=== PATIENT | male | born 1950 | race Caucasian/White ===

== ENCOUNTER 2018-09-16 04:16 | Emergency (ER) | payer MEDICARE, OTHER ==
[2018-09-16] MEDS ORDERED: HYDROmorphone INJ* 0.5 MG/0.5 ML SYRINGE IV SLOW PU ONE (04:56)
[2018-09-16] MEDS ORDERED: Ondansetron INJ* 2 MG/ML VIAL IV ONE (04:57)
[2018-09-16 05:15] LABS: ABS Basophils 0.1 10^3/ul (0-0.2); ABS Eosinophils 0.1 10^3/ul (0-0.6); ABS Lymphocytes 0.8 10^3/ul (1.0-4.8); ABS Monocytes 0.4 10^3/ul (0-0.8); ABS Neutrophils 3.7 10^3/ul (1.5-7.7); Eosinophil % 2.2 %; Hematocrit 29 % (42-52); Hemoglobin 9.6 g/dL (14.0-18.0); Lymphocyte % 16.7 %; Mean Corpuscular HGB Conc 33 g/dL (31-36); Mean Corpuscular Hemoglobin 23 pg (27-31); Mean Corpuscular Volume 70 fL (80-94); Mean Platelet Volume 7.8 fL (7.4-10.4); Platelet Count 177 10^3/uL (150-450); Red Blood Count 4.16 10^6 /uL (4.18-5.48); Red Cell Distribution Width 18 % (10-15)
[2018-09-16 05:27] LABS: Activated Partial Thrombo Time 31.1 seconds (26.0-38.0); INR 1.14 (0.82-1.09)
[2018-09-16 05:31] LABS: ALT 20 U/L (7-52); AST 24 U/L (13-39); Albumin 4.1 g/dL (3.2-5.2); Albumin/Globulin Ratio 1.6 (1-3); Alkaline Phosphatase 71 U/L (34-104); Anion Gap 6 mmol/L (2-11); BUN/Creatinine Ratio 23.2 (8-20); Blood Urea Nitrogen 19 mg/dL (6-24); C Reactive Protein < 1.00 mg/L (<8.01); CO2 Carbon Dioxide 25 mmol/L (22-32); Calcium 9.3 mg/dL (8.6-10.3); Chloride 106 mmol/L (101-111); EGFR African American 112.7 (>60); EGFR Non-African American 93.2 (>60); Globulin 2.5 g/dL (2-4); Glucose 129 mg/dL (70-100); Potassium 4.1 mmol/L (3.5-5.0); Sodium 137 mmol/L (135-145); Total Protein 6.6 g/dL (6.4-8.9)
[2018-09-16] MEDS ORDERED: fentaNYL* 50 MCG/ML 2 ML VIAL (100 MCG VIAL) IV SLOW PU ONE (05:44)
[2018-09-16 06:17] LABS: Erythrocyte Sed Rate 29 mm/Hr (0-19)
--- NOTE | 2018-09-16 07:15 | ED ---
Progress - Progress Note Progress Note: This patient was signed out from Dr. Renee to Dr. Quezada at 0700 on 09/16/18, pending disposition, awaiting CT pelvis. Pelvis CT reveals, IMPRESSION: MODERATE TO SEVERE OSTEOARTHRITIC CHANGE IN THE LEFT HIP AND MODERATE OSTEOARTHRITIC CHANGE IN THE RIGHT HIP. The patients condition is stable and will be discharged to home with Dx of hip pain and sacroiliac pain. - Results/Orders Results/Orders: Pelvis CT reveals, per radiologist, IMPRESSION: MODERATE TO SEVERE OSTEOARTHRITIC CHANGE IN THE LEFT HIP AND MODERATE OSTEOARTHRITIC CHANGE IN THE RIGHT HIP. ED physician has reviewed this radiology report. Re-Evaluation - Re-Evaluation First Eval Re-Evaluation Time: 07:28 Comment: Discussed results and plan of care with pt. Pt is agreeable with discharge. Second Eval Re-Evaluation Time: 08:35 Comment: Pt can walk. Course/Dx - Course Course Of Treatment: This patient was signed out from Dr. Renee to Dr. Quezada , pending disposition, awaiting CT pelvis. Pelvis CT reveals, IMPRESSION: MODERATE TO SEVERE OSTEOARTHRITIC CHANGE IN THE LEFT HIP AND MODERATE OSTEOARTHRITIC CHANGE IN THE RIGHT HIP. Discussed results and plan of care with pt. Pt can walk. The patients condition is stable and will be discharged to home with Dx of hip pain and sacroilic pain. Pt is agreeable with this plan. - Diagnoses Provider Diagnoses: Hip pain, Sacroiliac pain Discharge - Sign-Out/Discharge Documenting (check all that apply): Patient Departure - Discharge Patient Received Moderate/Deep Sedation with Procedure: No - Discharge Plan Condition: Stable Disposition: HOME Prescriptions: Cyclobenzaprine TAB* [Flexeril 10 MG TAB*] 10 mg PO TID PRN #20 tab PRN Reason: Pain methylPREDNISolone [Medrol] 4 mg PO DAILY #21 tab.ds.pk oxyCODONE/Acetamin 5/325 MG* [Percocet 5/325 TAB*] 1 tab PO Q4H PRN #15 tab MDD 6 PRN Reason: Pain Patient Education Materials: Sacroiliitis (ED), Hip Pain (ED) Print Language: HAITIAN Referrals: Marc Piper MD [Medical Doctor] - Zahira Sosa MD [Primary Care Provider] - Additional Instructions: Follow up with ortho within 1 day. RETURN TO ED FOR ANY NEW OR WORSENING SYMPTOMS. - Billing Disposition and Condition Condition: STABLE Disposition: Home - Attestation Statements Document Initiated by Loreleiibe: Yes Documenting Scribe: Nelly Curry Provider For Whom Dex is Documenting (Include Credential): Dr. Siomara Rico MD Scribe Attestation: Nelly Tolbert, scribed for Dr. Siomara Rico MD on 09/16/18 at 2002. Scribe Documentation Reviewed: Yes Provider Attestation: The documentation as recorded by the loreleiibe, Nelly Curry accurately reflects the service I personally performed and the decisions made by me, Dr. Siomara Rico MD Status of Scribe Document: Viewed
--- NOTE | 2018-09-16 07:44 | ED ---
Complex/Multi-Sys Presentation - HPI Summary HPI Summary: This patient is a 67 year old M [facility] by his with a chief complaint of left hip pain since yesterday morning. Patient states that he went on a walk and pain came when he stopped walking. He notes he never had this hip pain before. Patient took Aleve at 0900 last night without significant relief. He says he cannot walk or lay flat due to the pain. The patient rates the pain 9/10 in severity. Symptoms aggravated by movement. Symptoms alleviated by rest. Patient denies fever, chills, back pain. He denies hx of arthritis. - History Of Current Complaint Chief Complaint: EDHipPelvisInjury Time Seen by Provider: 09/16/18 04:37 Hx Obtained From: Patient, Family/Assistant [employer] Shift [employer] - Onset/Duration: Sudden Onset, Lasting Days - 1, Still Present Timing: Constant, Days - 1 Severity Currently: Severe Severity Initially: Severe Associated Signs And Symptoms: Positive: Other - positive - pt cannot walk or lay flat due to the pain, left hip pain. negative - chills. Negative: Back Pain , Fever - Allergies/Home Medications Allergies/Adverse Reactions: Allergies Allergy/AdvReac Type Severity Reaction Status Date / Time No Known Allergies Allergy Verified 09/16/18 04:19 PMH/Surg Hx/FS Hx/Imm Hx Previously Healthy: No Endocrine/Hematology History: Denies: Hx Diabetes, Hx Thyroid Disease Cardiovascular History: Denies: Hx Hypertension Respiratory History: Denies: Hx Asthma, Hx Chronic Obstructive Pulmonary Disease (COPD) GI History: Denies: Hx Ulcer - Surgical History Surgical History: Yes Surgery Procedure, Year, and Place: bariatric surgery 2010 Infectious Disease History: No Infectious Disease History: Denies: Hx Hepatitis, Hx Human Immunodeficiency Virus (HIV), Traveled Outside the [place] in Last 30 Days - Family History Known Family History: Positive: None - Social History Alcohol Use: None Hx Substance Use: No Substance Use Type: Reports: None Hx Tobacco Use: No Smoking Status (MU): Never Smoked Tobacco Do You Chew or Dip Tobacco: No Have You Chewed or Dipped Tobacco in the LAST YEAR: No Have You Smoked in the Last Year: No Review of Systems Negative: Fever, Chills Musculoskeletal: Other - positive - left hip pain, pt cannot walk or lay flat. negative - back pain All Other Systems Reviewed And Are Negative: Yes Physical Exam - Summary Physical Exam Summary: VITAL SIGNS: Reviewed. GENERAL: Patient is a well-developed and nourished MALE who is lying comfortable in the stretcher. Patient is not in any acute respiratory distress. HEAD AND FACE: No signs of trauma. No ecchymosis, hematomas or skull depressions. No sinus tenderness. EYES: PERRLA, EOMI x 2, No injected conjunctiva, no nystagmus. EARS: Hearing grossly intact. Ear canals and tympanic membranes are within normal limits. MOUTH: Oropharynx within normal limits. NECK: Supple, trachea is midline, no adenopathy, no JVD, no carotid bruit, no c- spine tenderness, neck with full ROM CHEST: Symmetric, no tenderness at palpation LUNGS: Clear to auscultation bilaterally. No wheezing or crackles. CVS: Regular rate and rhythm, S1 and S2 present, no murmurs or gallops appreciated. ABDOMEN: Soft, non-tender. No signs of distention. No rebound no guarding, and no masses palpated. Bowel sounds are normal. EXTREMITIES: Pt is very uncomfortable due to pain and tenderness over left sacroiliac joint NEURO: Alert and oriented x 3. No acute neurological deficits. Speech is normal and follows commands. SKIN: Dry and warm Triage Information Reviewed: Yes Vital Signs On Initial Exam: Initial Vitals Temp Pulse Resp BP Pulse Ox 98.2 F 63 16 144/84 99 09/16/18 04:18 09/16/18 04:18 09/16/18 04:18 09/16/18 04:18 09/16/18 04:18 Vital Signs Reviewed: Yes Diagnostics - Vital Signs Vital Signs Temp Pulse Resp BP Pulse Ox 09/16/18 05:50 16 09/16/18 05:12 67 152/73 98 09/16/18 05:07 18 09/16/18 04:18 98.2 F 63 16 144/84 99 - Laboratory Lab Results: Lab Results 09/16/18 09/16/18 09/16/18 Range/Units 05:05 05:05 05:05 WBC 5.0 (3.5-10.8) 10^3/uL RBC 4.16 L (4.18-5.48) 10^6 /uL Hgb 9.6 L (14.0-18.0) g/dL Hct 29 L (42-52) % MCV 70 L (80-94) fL MCH 23 L (27-31) pg MCHC 33 (31-36) g/dL RDW 18 H (10-15) % Plt Count 177 (150-450) 10^3/uL MPV 7.8 (7.4-10.4) fL Neut % (Auto) 72.9 % Lymph % (Auto) 16.7 % [place] % (Auto) 7.1 % Eos % (Auto) 2.2 % Baso % (Auto) 1.1 % Absolute Neuts (auto) 3.7 (1.5-7.7) 10^3/ul Absolute Lymphs (auto) 0.8 L (1.0-4.8) 10^3/ul Absolute Monos (auto) 0.4 (0-0.8) 10^3/ul Absolute Eos (auto) 0.1 (0-0.6) 10^3/ul Absolute Basos (auto) 0.1 (0-0.2) 10^3/ul Absolute Nucleated RBC 0.0 10^3/ul Nucleated RBC % 0.0 ESR 29 H (0-19) mm/Hr INR (Anticoag Therapy) 1.14 H (0.82-1.09) APTT 31.1 (26.0-38.0) seconds Sodium 137 (135-145) mmol/L Potassium 4.1 (3.5-5.0) mmol/L Chloride 106 (101-111) mmol/L Carbon Dioxide 25 (22-32) mmol/L Anion Gap 6 (2-11) mmol/L BUN 19 (6-24) mg/dL Creatinine 0.82 (0.67-1.17) mg/dL Est GFR ( Amer) 112.7 (>60) Est GFR (Non-Af Amer) 93.2 (>60) BUN/Creatinine Ratio 23.2 H (8-20) Glucose 129 H (70-100) mg/dL Calcium 9.3 (8.6-10.3) mg/dL Total Bilirubin 0.30 (0.2-1.0) mg/dL AST 24 (13-39) U/L ALT 20 (7-52) U/L Alkaline Phosphatase 71 (34-104) U/L C-Reactive Protein < 1.00 (<8.01) mg/L Total Protein 6.6 (6.4-8.9) g/dL Albumin 4.1 (3.2-5.2) g/dL Globulin 2.5 (2-4) g/dL Albumin/Globulin Ratio 1.6 (1-3) Result Diagrams: 09/16/18 05:05 09/16/18 05:05 Lab Statement: Any lab studies that have been ordered have been reviewed, and results considered in the medical decision making process. Re-Evaluation - Re-Evaluation First Eval Re-Evaluation Time: 07:28 Comment: Discussed results and plan of care with pt. Pt is agreeable with discharge. Complex Multi-Symp Course/Dx Course Of Treatment: This patient is a 67 year old M [facility] accompanied by his with a chief complaint of left hip pain since yesterday morning. Patient states that he went on a walk and pain came when he stopped walking. He notes he never had this hip pain before. Patient took Aleve at 0900 last night without significant relief. He says he cannot walk or lay flat due to the pain. The patient rates the pain 9/10 in severity. Symptoms aggravated by movement. Symptoms alleviated by rest. Patient denies fever, chills, back pain. He denies hx of arthritis. Physical exam findings show pt is very uncomfortable due to pain and tenderness over left sacroiliac joint. Lab results show RBC 4.16, Hgb 9.6, Hct 29, MCV 70, MCH 23, RDW 18, absolute lymphs 0.8, ESR 29, INR 1.14, BUN/creatinine ratio 23.3, glucose 129. During the ED course, the patient was given fentanyl, Dilaudid, Zofran, and Deltasone. Final diagnoses are sacroiliac pain and hip pain. This patient will be a signout from Dr. Renee to Dr. Quezada at shift change 0700 09/16/[address] pelvis results. - Diagnoses Provider Diagnoses: Hip pain, Sacroiliac pain Discharge - Sign-Out/Discharge Documenting (check all that apply): Sign-Out Patient Signing out patient TO: Siomara Rico - This patient is a signout from Dr. Renee to Dr. Quezada at shift change 0700 09/16/[address] pelvis results Patient Received Moderate/Deep Sedation with Procedure: No - Discharge Plan Referrals: Zahira Sosa MD [Primary Care Provider] - - Attestation Statements Document Initiated by Scribe: Yes Documenting Scribe: Luis Antonio Celaya Provider For Whom Dex is Documenting (Include Credential): Dr. Prudencio Renee MD Scribe Attestation: Luis Antonio Tolbert, scribed for Dr. Prudencio Renee MD on 09/16/18 at 0754. Status of Scribe Document: Ready
[2018-09-16] MEDS ORDERED: predniSONE TAB* 20 MG PO ONE (07:48)
[2018-09-16 08:51] VITALS: BP 141/69
== END 2018-09-16 08:50 | disposition home or self-care (01) ==
LOC: ED 04:16
DX: M25.552 Pain in left hip (principal); M53.3 Sacrococcygeal disorders, not elsewhere classified
CPT/HCPCS: 36415; 72192; 80053; 85025; 85610; 85652; 85730; 86140; 96374; 96375; 99283; J1170; J2405; J3010; J7512